=== PATIENT | male | born 1990 | race Caucasian/White ===

== ENCOUNTER 2019-06-23 10:04 | Emergency (ER) | payer SELFPAY ==
[2019-06-23] MEDS ORDERED: LORazepam 2 MG/ML VIAL (J2060) IV ONE (10:30)
[2019-06-23] MEDS ORDERED: NAPR-837 PO (11:28)
[2019-06-23 11:40] VITALS: BP 115/81
--- NOTE | 2019-06-23 11:58 | REP ---
BILATERAL RIB SERIES: Five views of bilateral ribs performed in addition to a PA view of the chest. No rib fracture or bone lesion is visualized. The lungs are free of infiltrate. There is no pneumothorax or pleural effusion. Heart is normal in size. IMPRESSION: No evidence of rib fracture bilaterally. Electronically Signed by Lalo Gutiérrez MD 06/23/2019 05:51 P
== END 2019-06-23 12:02 | disposition home or self-care (01) ==
LOC: EDBD 10:04 → M ED 10:04
DX: S20.229A Contusion of unspecified back wall of thorax, initial encounter (principal); Y04.8XXA Assault by other bodily force, initial encounter; Y07.04 Female partner, perpetrator of maltreatment and neglect; Y92.89 Other specified places as the place of occurrence of the external cause; F17.200 Nicotine dependence, unspecified, uncomplicated
CPT/HCPCS: 71111; 96374; 99284; J2060